=== PATIENT | male | born 1980 ===

== ENCOUNTER 2016-09-05 08:26 | Emergency (ER) | payer BC ==
[2016-09-05] MEDS ORDERED: Lidocaine 1% Inj (20ml) ONE (08:59)
--- NOTE | 2016-09-05 09:09 | C.PDOC ---
History Of Present Illness Patient reports a mirror cut his right hand causing a laceration [employer], full rom hand Time Seen by Provider: 09/05/16 08:43 Chief Complaint (Nursing): Abnormal Skin Integrity History Per: Patient History/Exam Limitations: no limitations Onset/Duration Of Symptoms: Hrs (1) Location Of Injury: Right: Hand (laceration) Severity: Mild Recent travel outside of the [place]: No Past Medical History Reviewed: Historical Data, Nursing Documentation, Vital Signs Vital Signs: Last Vital Signs Temp 98.3 F 09/05/16 08:33 Pulse 86 09/05/16 08:33 Resp 18 09/05/16 08:33 BP 138/92 H 09/05/16 08:33 Pulse Ox 97 09/05/16 09:16 - Medical History PMH: No Chronic Diseases Surgical History: No Surg Hx Family History: States: No Known Family Hx - Social History Hx Alcohol Use: No Hx Substance Use: No - Immunization History Hx Tetanus Toxoid Vaccination: No Hx Influenza Vaccination: No Hx Pneumococcal Vaccination: No Review Of Systems Skin: Positive for: Other (laceration right hand) Physical Exam - Physical Exam Appears: Well, Non-toxic Skin: Other (3 cm superficial laceration right dorsal hand) Cardiovascular: Rhythm Regular Respiratory: Normal Breath Sounds Extremity: Normal ROM (right hand) Neurological/Psych: Oriented x3 ED Course And Treatment O2 Sat by Pulse Oximetry: 97 Pulse Ox Interpretation: Normal Progress Note: Treated with Tdap Reassessment Condition: Improved Laceration - Laceration Repair No standard instances Wound Length (In cm): 3 cm Description Of Wound: Linear, Clean Wound Cleansed With: Betadine Anesthesia: Lidocaine 1% Wound Examination: Irrigated With Saline Wound Closure: Suture Suture Technique And Material Used: Interrupted Wound Complexity: Simple Disposition Counseled Patient/Family Regarding: Need For Followup - Disposition [facility]errals: [facility]Outside[facility] Disposition: HOME/ ROUTINE Disposition Time: 09:30 Condition: STABLE Instructions: Laceration (DC) - POA Present On Arrival: None - Clinical Impression Clinical Impression: Hand laceration
[2016-09-05 09:51] VITALS: BP 130/80; PULSE 84; RESP 16; TEMP 98.4; O2SAT 98
== END 2016-09-05 09:50 | disposition home or self-care (01) ==
LOC: C.ER 08:26
DX: S61.411A Laceration without foreign body of right hand, initial encounter (principal); W25.XXXA Contact with sharp glass, initial encounter; Y93.89 Activity, other specified; Y92.89 Other specified places as the place of occurrence of the external cause; Z23 Encounter for immunization

== ENCOUNTER 2016-09-15 10:14 | Emergency (ER) | payer BC ==
[2016-09-15 10:19] VITALS: BMI 31.1
[2016-09-15 10:21] VITALS: BP 113/68; PULSE 84; RESP 20; TEMP 98.1; O2SAT 100
[2016-09-15] MEDS ORDERED: Bacitracin 500 Units/gm Oint Foilpak UD ONE (10:49)
--- NOTE | 2016-09-15 11:03 | C.PDOC ---
History Of Present Illness 36-year-old male, presents to the emergency department requesting suture removal from right dorsal hand. Denies any new symptoms. No fevers, nausea/ vomiting. Time Seen by Provider: 09/15/16 10:32 Chief Complaint (Nursing): Abnormal Skin Integrity History Per: Patient History/Exam Limitations: no limitations Onset/Duration Of Symptoms: Days Current Symptoms Are (Timing): Better Past Medical History Reviewed: Historical Data, Nursing Documentation, Vital Signs Vital Signs: Last Vital Signs Temp 98.1 F 09/15/16 10:19 Pulse 84 09/15/16 10:19 Resp 20 09/15/16 10:19 BP 113/68 09/15/16 10:19 Pulse Ox 100 09/15/16 12:36 Family History: States: No Known Family Hx - Social History Hx Alcohol Use: No Hx Substance Use: No - Immunization History Hx Tetanus Toxoid Vaccination: No Hx Influenza Vaccination: No Hx Pneumococcal Vaccination: No Review Of Systems Constitutional: Negative for: Fever Gastrointestinal: Negative for: Nausea, Vomiting Neurological: Negative for: Weakness, Numbness Physical Exam - Physical Exam Appears: Non-toxic, No Acute Distress Skin: Dry, No Rash, Other (three sutures in place. Healed scar. No erythema, discharge. No warmth) Eye(s): bilateral: Normal Inspection Extremity: No Tenderness, Capillary Refill (< 2 sec), No Swelling Pulses: Left Dorsalis Pedis: Normal, Right Dorsalis Pedis: Normal Neurological/Psych: Oriented x3, Normal Motor, Normal Sensation Gait: Steady ED Course And Treatment O2 Sat by Pulse Oximetry: 100 (on RA) Pulse Ox Interpretation: Normal Medical Decision Making Medical Decision Making: Old records reviewed, the patient was last seen on 09/05/16 for laceration. Three sutures removed by me without difficulty, bacitracin and sterile dressing applied. PROCEDURE: SUTURE REMOVAL Performed by the emergency provider Location: Dorsal aspect of R hand Distal CMS: Normal. No deficits. Neurovascularly intact. Preparation: The wound was cleaned with NS and Betadyne. The area was prepped and draped in the usual sterile fashion. Procedure: In total, three sutures were removed. Post-Procedure: Good closure and hemostasis. The patient tolerated the procedure well and there were no complications. CSM remains intact. Disposition - Disposition Referrals: [facility] [Outside] Disposition: HOME/ ROUTINE Disposition Time: 11:01 Condition: GOOD Instructions: Stitches Removal (ED) - Clinical Impression Clinical Impression: Visit for suture removal - Scribe Statement The provider has reviewed the documentation as recorded by the Scribe (Alin Brown) All medical record entries made by the Scribe were at my direction and personally dictated by me. I have reviewed the chart and agree that the record accurately reflects my personal performance of the history, physical exam, medical decision making, and the department course for this patient. I have also personally directed, reviewed, and agree with the discharge instructions and disposition.
== END 2016-09-15 11:15 | disposition home or self-care (01) ==
LOC: C.ER 10:14
DX: Z48.02 Encounter for removal of sutures (principal)